=== PATIENT | female | born 1960 | race Caucasian/White ===

== ENCOUNTER 2016-11-29 19:06 | Emergency (ER) | payer MEDICAID ==
[2016-11-29 19:23] VITALS: BP 111/76; PULSE 88; RESP 18; TEMP 98.8; O2SAT 92
[2016-11-29] MEDS ORDERED: LETS SOLN TOPICAL 1 EA SYR TP ONE (19:44)
[2016-11-29] MEDS ORDERED: CEPHALEXIN 500 MG CAP PO ONE (20:12)
--- NOTE | 2016-11-29 20:15 | UCPHY ---
H & P Time Seen by Provider: 11/29/16 19:30 Patient Type: Established HPI/ROS: This patient has an infected wound to the right medial ankle. She explains that she struck her ankle against a sharp metal edge of the bed frame sustaining an abrasion or superficial laceration week ago. She cleaned at home was not seen by practitioner at that time. Over the past few days she has developed increasing redness and discomfort to the area. She also reports mild swelling. She reports a very small amount of discharge home. ROS: No fevers or chills. No other constitutional symptoms. No nausea or vomiting. No lightheadedness. 5 point ROS is otherwise negative. Past Medical/Surgical History: Hypothyroid. Otherwise healthy Immunocompetent Smoking Status: Current every day smoker Physical Exam: Physical Exam Vital signs are normal. General: No acute distress Eyes: Pupils equal and react to light. Extraocular motions are intact. Lungs: No respiratory distress. Cardiac: Brisk capillary refill is intact throughout. Pulses are 2+ and symmetric in the affected extremity. Skin: There is a 2 cm subacute laceration to the right medial ankle with fibrinous exudate and surrounding erythema 6 cm in diameter. There is no associated fluctuance or purulent drainage. There is no bony tenderness. No ankle effusion associated with this. Findings are localized only. Neuro: Alert and oriented x3 with no sensorimotor deficits. Constitutional: Initial Vital Signs Temperature (C) 37.1 C 11/29/16 19:20 Heart Rate 88 11/29/16 19:20 Respiratory Rate 18 11/29/16 19:20 Blood Pressure 111/76 11/29/16 19:20 O2 Sat (%) 92 11/29/16 19:20 O2 Delivery Mode Room Air Allergies/Adverse Reactions: Penicillins Allergy (Severe, Verified 10/05/16 17:23) Anaphylaxis erythromycin base [Erythromycin Base] Allergy (Verified 10/05/16 17:23) Hives Tetracyclines Allergy (Verified 10/05/16 17:23) Hives FLU SHOT Allergy (Uncoded 10/05/16 17:23) Other-Enter Comments Home Medications: Medication Instructions Recorded Levothyroxine [Synthroid 125 mcg 03/11/12 (*)] valACYclovir [Valtrex (*)] 04/30/14 oxyCODONE/APAP 5/325 [Percocet 05/01/14 5/325 (*)] Cymbalta 10/05/16 IBUPROFEN 10/05/16 Neurontin 10/05/16 Cephalexin [Keflex (*)] 500 mg PO TID #21 cap 11/29/16 MDM/Departure - MDM Medications Given: Discontinued Medications Cephalexin HCl (Keflex) 500 mg PO EDNOW ONE PRN Reason: Protocol Stop: 11/29/16 20:13 Last Admin: 11/29/16 20:44 Dose: 500 mg Tetracaine/Epinephrine/Lidocaine (Lets Soln Topical) 1 ea TP EDNOW ONE Stop: 11/29/16 19:45 Last Admin: 11/29/16 19:55 Dose: 1 ea ED Course/Re-evaluation: I obtained wound culture Let solution was applied for anesthesia the wound was scrubbed by our nurse a dressing was placed. I counseled the patient regarding wound infection. Clinically there is no evidence of abscess, septic arthritis or other concerning findings. She has no constitutional symptoms. While she has a penicillin allergy she has tolerated cephalosporins in the past by her history - Depart Disposition: Home, Routine, Self-Care Clinical Impression: Wound infection Cellulitis Qualifiers: Site of cellulitis: extremity Site of cellulitis of extremity: lower extremity Laterality: right Qualified Code(s): L03.115 - Cellulitis of right lower limb Condition: Good Instructions: Cellulitis (ED) Additional Instructions: Diagnosis: Wound infection of ankle wound 2. Cellulitis Plan: Apply warm packs to 3 times a day Elevate the leg when possible Keflex antibiotic Ibuprofen Tylenol for pain Clean the wound with warm soapy water daily and apply bandage when up and about. Let air get to the wound for at least part of the day Return if you have any significant worsening despite the treatment plan. Prescriptions: Cephalexin [Keflex (*)] 500 mg PO TID #21 cap Referrals: Lexie Wu MD [Primary Care Provider] - As per Instructions - PQRS PQRS Measurement: NA
== END 2016-11-29 20:47 | disposition home or self-care (01) ==
LOC: CED 19:06
DX: L03.115 Cellulitis of right lower limb (principal); S91.011D Laceration without foreign body, right ankle, subsequent encounter; W22.03XD Walked into furniture, subsequent encounter; W45.8XXD Other foreign body or object entering through skin, subsequent encounter; F17.200 Nicotine dependence, unspecified, uncomplicated
CPT/HCPCS: 99214-PO; G0463-PO

== ENCOUNTER 2017-08-22 17:17 | Emergency (ER) | payer MEDICAID ==
[2017-08-22 17:26] VITALS: TEMP 97.9; O2SAT 96
--- NOTE | 2017-08-22 17:34 | EDPHY ---
H & P Stated Complaint: Sharp R sided abd/flank pain assoc w/nausea/diarrhea HPI/ROS: HPI CHIEF COMPLAINT: Abdominal pain, right flank pain HISTORY OF PRESENT ILLNESS: This patient very pleasant 56-year-old female she has significant past medical history for arthritis, fibromyalgia, bipolar disorder, presents emergency room with 3 days of diarrhea and nausea. No fever. Additionally today she developed right-sided flank pain she describes as sharp stabbing it radiates into her right abdomen. She distally also reports urinary frequency. Denies back pain. Denies chest pain or shortness of breath. Main complaint nausea right flank pain. Past Medical History: Fibromyalgia, bipolar disorder, arthritis. Past Surgical History: . Social History: Daily smoker. Denies illicit drugs or alcohol. Family History: No recent surgery. ROS REVIEW OF SYSTEMS: A comprehensive 10 point review of systems is otherwise negative aside from elements mentioned in the history of present illness. Exam Constitutional appears well nontoxic, triage nursing summary reviewed, vital signs reviewed, awake/alert. Eyes normal conjunctivae and sclera, EOMI, PERRLA. HENT normal inspection, atraumatic, moist mucus membranes, no epistaxis, neck supple/ no meningismus, no raccoon eyes. Respiratory clear to auscultation bilaterally, normal breath sounds, no respiratory distress, no wheezing. Cardiovascular rate normal, regular rhythm, no murmur, no edema, distal pulses normal. Gastrointestinal mild right lower quadrant pain, soft, non-tender, no rebound, no guarding, normal bowel sounds, no distension, no pulsatile mass. Genitourinary mild right CVA tenderness, Musculoskeletal no midline vertebral tenderness, full range of motion, no calf swelling, no tenderness of extremities, no meningismus, good pulses, neurovascularly intact. Skin pink, warm, & dry, no rash, skin atraumatic. Neurologic awake, alert and oriented x 3, AAOx3, moves all 4 extremities equally, motor intact, sensory intact, CN II-XII intact, normal cerebellar, normal vision, normal speech. Psychiatric normal mood/affect. Heme/Lymph/Immune no lymphadenopathy. Differential diagnosis includes but is not limited to and in no particular order : Bowel obstruction, appendicitis, gallbladder disease, diverticulitis, colitis , enteritis, perforated viscus, gastritis, GERD, esophagitis, urinary tract infection, pyelonephritis, kidney stones Medical Decision Making: Plan for this patient IV establishment IV fluid bolus , 1 mg IV Ativan for anxiety, check UA, check blood work including CBC, LFTs, lipase, proceed with CT scan abdomen pelvis with IV contrast for right lower quadrant pain. And re-evaluate. Re-evaluation: CT scan abdomen pelvis with IV contrast negative for acute inflammatory process. This patient has a normal appendix. No evidence of a ureteral stones. Patient's blood work has been reviewed is unremarkable. Normal white count normal electrolytes normal liver enzymes normal UA. Nothing to explain right lower quadrant pain and right flank pain. This may be musculoskeletal in nature. I will place her on ibuprofen Flexeril for home. Return precautions given. She understands return emergency room if she develops worsening abdominal pain fever or vomiting. Flexeril and ibuprofen provided as prescriptions. Return precautions given. Source: Patient - Personal History Current Tetanus Diphtheria and Acellular Pertussis (TDAP): Yes Tetanus Vaccine Date: 2008 - Medical/Surgical History Hx Asthma: Yes Hx Chronic Respiratory Disease: No Hx Diabetes: No Hx Cardiac Disease: No Hx Renal Disease: No Hx Cirrhosis: No Hx Alcoholism: No Hx HIV/AIDS: No Hx Splenectomy or Spleen Trauma: No Other PMH: hypothyroid, exercise induced asthma. fibromyalgia - Social History Smoking Status: Current every day smoker Constitutional: Initial Vital Signs Temperature (C) 36.6 C 08/22/17 17:24 Heart Rate 88 08/22/17 17:24 Respiratory Rate 20 08/22/17 17:24 Blood Pressure 168/96 H 08/22/17 17:24 O2 Sat (%) 96 08/22/17 17:24 O2 Delivery Mode Room Air Allergies/Adverse Reactions: Penicillins Allergy (Severe, Verified 10/05/16 17:23) Anaphylaxis erythromycin base [Erythromycin Base] Allergy (Verified 10/05/16 17:23) Hives Tetracyclines Allergy (Verified 10/05/16 17:23) Hives FLU SHOT Allergy (Uncoded 10/05/16 17:23) Other-Enter Comments Home Medications: Medication Instructions Recorded Levothyroxine [Synthroid 125 mcg 03/11/12 (*)] valACYclovir [Valtrex (*)] 04/30/14 oxyCODONE/APAP 5/325 [Percocet 05/01/14 5/325 (*)] Cymbalta 10/05/16 IBUPROFEN 10/05/16 Neurontin 10/05/16 Cyclobenzaprine [Flexeril 10 MG 10 mg PO TID PRN #15 tab 08/22/17 (*)] Ibuprofen [Motrin (*)] 800 mg PO Q6-8PRN #10 tab 08/22/17 busPIRone [Buspar (*)] 10 mg PO 08/22/17 Medical Decision Making - Data Points Laboratory Results: Laboratory Results 08/22/17 17:43 08/22/17 17:43 08/22/17 08/22/17 08/22/17 17:43 17:43 17:20 WBC 8.88 10^3/uL 10^3/uL (3.80-9.50) RBC 4.27 10^6/uL 10^6/uL (4.18-5.33) Hgb 14.2 g/dL g/dL (12.6-16.3) Hct 40.5 % % (38.0-47.0) MCV 94.8 fL fL (81.5-99.8) MCH 33.3 pg pg (27.9-34.1) MCHC 35.1 g/dL g/dL (32.4-36.7) RDW 12.6 % % (11.5-15.2) Plt Count 239 10^3/uL 10^3/uL (150-400) MPV 11.0 fL fL (8.7-11.7) Neut % (Auto) 71.4 % % (39.3-74.2) Lymph % (Auto) 20.6 % % (15.0-45.0) [place] % (Auto) 5.3 % % (4.5-13.0) Eos % (Auto) 1.8 % % (0.6-7.6) Baso % (Auto) 0.7 % % (0.3-1.7) Nucleat RBC Rel Count 0.0 % % (0.0-0.2) Absolute Neuts (auto) 6.34 10^3/uL 10^3/uL (1.70-6.50) Absolute Lymphs (auto) 1.83 10^3/uL 10^3/uL (1.00-3.00) Absolute Monos (auto) 0.47 10^3/uL 10^3/uL (0.30-0.80) Absolute Eos (auto) 0.16 10^3/uL 10^3/uL (0.03-0.40) Absolute Basos (auto) 0.06 10^3/uL 10^3/uL (0.02-0.10) Absolute Nucleated RBC 0.00 10^3/uL 10^3/uL (0-0.01) Immature Gran % 0.2 % % (0.0-1.1) Immature Gran # 0.02 10^3/uL 10^3/uL (0.00-0.10) Sodium 141 mEq/L mEq/L (134-144) Potassium 4.5 mEq/L mEq/L (3.5-5.2) Chloride 106 mEq/L mEq/L (97-110) Carbon Dioxide 24 mEq/l mEq/l (22-31) Anion Gap 11 mEq/L mEq/L (8-16) BUN 14 mg/dL mg/dL (7-23) Creatinine 0.8 mg/dL mg/dL (0.6-1.0) Estimated GFR > 60 Glucose 98 mg/dL mg/dL (70-100) Calcium 10.4 mg/dL mg/dL (8.5-10.4) Total Bilirubin 0.7 mg/dL mg/dL (0.1-1.4) Conjugated Bilirubin 0.2 mg/dL mg/dL (0.0-0.5) Unconjugated Bilirubin 0.5 mg/dL mg/dL (0.0-1.1) AST 33 IU/L IU/L (14-46) ALT 32 IU/L IU/L (9-52) Alkaline Phosphatase 80 IU/L IU/L (38-126) Total Protein 7.2 g/dL g/dL (6.3-8.2) Albumin 4.5 g/dL g/dL (3.5-5.0) Lipase 106 IU/L IU/L (23-300) Urine Color COLORLESS Urine Appearance CLEAR Urine pH 7.0 (5.0-7.5) Ur Specific [place] 1.003 (1.002-1.030) Urine Protein NEGATIVE (NEGATIVE) Urine Ketones NEGATIVE (NEGATIVE) Urine Blood NEGATIVE (NEGATIVE) Urine Nitrate NEGATIVE (NEGATIVE) Urine Bilirubin NEGATIVE (NEGATIVE) Urine Urobilinogen NEGATIVE EU EU (0.2-1.0) Ur Leukocyte Esterase NEGATIVE (NEGATIVE) Urine Glucose NEGATIVE (NEGATIVE) Medications Given: Discontinued Medications Sodium Chloride (Ns) 1,000 mls @ 0 mls/hr IV EDNOW ONE; Wide Open PRN Reason: Protocol Stop: 08/22/17 17:39 Last Admin: 08/22/17 17:46 Dose: 1,000 mls Lorazepam (Ativan Injection) 1 mg IVP EDNOW ONE Stop: 08/22/17 17:40 Last Admin: 08/22/17 17:46 Dose: 1 mg Departure - Departure Disposition: Home, Routine, Self-Care Clinical Impression: Abdominal pain Qualifiers: Abdominal location: generalized Qualified Code(s): R10.84 - Generalized abdominal pain Condition: Good Instructions: Acute Abdominal Pain (ED) Additional Instructions: 1. Hardy diet next 24-48 hours. No spicy fatty greasy foods. 2. Return emergency room if develops worsening abdominal pain fever vomiting. Referrals: NONE *PRIMARY CARE P,. [Primary Care Provider] - As per Instructions Prescriptions: Cyclobenzaprine [Flexeril 10 MG (*)] 10 mg PO TID PRN #15 tab PRN Reason: Spasms Ibuprofen [Motrin (*)] 800 mg PO Q6-8PRN #10 tab
[2017-08-22] MEDS ORDERED: NS 1,000 ML IV ONE (17:38)
[2017-08-22] MEDS ORDERED: LORazepam 2 MG/ML INJ IVP ONE (17:39)
[2017-08-22 17:50] LABS: COLOR COLORLESS; LEUKOCYTE ESTERASE,URINE NEGATIVE (NEGATIVE); NITRITE,URINE NEGATIVE (NEGATIVE)
[2017-08-22 18:12] LABS: % IMMATURE GRANULYOCYTES 0.2 % (0.0-1.1); ABSOLUTE IMMATURE GRANULOCYTES 0.02 10^3/uL (0.00-0.10); ADD DIFF? NO; ADD MORPH? NO; ADD SCAN? NO; ATYPICAL LYMPHOCYTE FLAG 0 (0-99); FRAGMENT RBC FLAG 0 (0-99); HEMATOCRIT 40.5 % (38.0-47.0); HEMOGLOBIN 14.2 g/dL (12.6-16.3); LEFT SHIFT FLG 0 (0-99); LIPEMIA HEMOLYSIS FLAG 90 (0-99); MEAN CELL HEMOGLOBIN 33.3 pg (27.9-34.1); MEAN CELL HEMOGLOBIN CONCENTR. 35.1 g/dL (32.4-36.7); MEAN CELL VOLUME 94.8 fL (81.5-99.8); PLATELET CLUMPS FLAG 0 (0-99); PLATELET COUNT 239 10^3/uL (150-400); RED BLOOD CELL COUNT 4.27 10^6/uL (4.18-5.33); RED CELL DISTRIBUTION WIDTH 12.6 % (11.5-15.2)
[2017-08-22 18:13] LABS: ALANINE AMINOTRANSFERASE 32 IU/L (9-52); ALBUMIN 4.5 g/dL (3.5-5.0); ALKALINE PHOSPHATASE 80 IU/L (38-126); ANION GAP 11 mEq/L (8-16); ASPARTATE AMINOTRANSFERASE 33 IU/L (14-46); BILIRUBIN,TOTAL 0.7 mg/dL (0.1-1.4); BILIRUBIN-CONJUGATED 0.2 mg/dL (0.0-0.5); BILIRUBIN-UNCONJUGATED 0.5 mg/dL (0.0-1.1); CALCIUM 10.4 mg/dL (8.5-10.4); CARBON DIOXIDE 24 mEq/l (22-31); CHLORIDE 106 mEq/L (97-110); CREATININE 0.8 mg/dL (0.6-1.0); GLOMERULAR FILTRATION RATE > 60; GLUCOSE 98 mg/dL (70-100); POTASSIUM 4.5 mEq/L (3.5-5.2); SODIUM 141 mEq/L (134-144); TOTAL PROTEIN 7.2 g/dL (6.3-8.2)
[2017-08-22] MEDS ORDERED: IOPAMIDOL (ISOVUE-300) 100 ML BTL ONE (18:33)
[2017-08-22 19:16] VITALS: BP 123/64; PULSE 78; RESP 16
== END 2017-08-22 20:19 | disposition home or self-care (01) ==
DX: R10.84 Generalized abdominal pain (principal); E86.9 Volume depletion, unspecified; F17.200 Nicotine dependence, unspecified, uncomplicated; J45.909 Unspecified asthma, uncomplicated
CPT/HCPCS: 96374; J2060; Q9967

== ENCOUNTER 2018-06-05 12:56 | Emergency (ER) | payer OTHER, MEDICAID ==
--- NOTE | 2018-06-05 13:33 | EDPHY ---
H & P Stated Complaint: fever 102 swollen glands face and ocampo for few days Time Seen by Provider: 06/05/18 13:05 HPI/ROS: Chief Complaint: Right facial droop, swollen glands, general malaise HPI: 57-year-old woman with a history of arthritis, fibromyalgia and TIA in the past is presenting complaining of numbness on the right side of her mouth and difficulty speaking. Patient states that she is also biting the inside of her lip because she cannot feel it. She says see woke up feeling this way. She has had general malaise for the last couple of days with swollen glands, she reports of fever to 102 at home. She did take some Tylenol today. She states she had similar symptoms 2 or 3 years ago and had negative testing done at that time. She is not currently on any anticoagulation. No falls. No nausea or vomiting. No other numbness or weakness. ROS: 10 point Review of Systems is negative except as noted in the HPI. PMH: Bipolar disorder, arthritis, fibromyalgia, TIA Social History: Positive smoking Family History: non-contributory Physical Exam: Gen: Awake, Alert, No Distress HEENT: Very mild right cheek swelling without any tenderness or masses noted. No erythema Nose: no rhinorrhea Eyes: PERRLA, EOMI Mouth: Moist mucosa, very mild right soft tissue tenderness just posterior to the angle of the jaw without any masses or lymphadenopathy. Neck: Supple, no JVD, no significant cervical lymphadenopathy Chest: nontender, lungs clear to auscultation Heart: S1, S2 normal, no murmur Abd: Soft, non-tender, no guarding Back: no CVA tenderness, no midline tenderness Ext: no edema, non-tender Skin: no rash Neuro: See NIH stroke score - Personal History Current Tetanus Diphtheria and Acellular Pertussis (TDAP): Yes Tetanus Vaccine Date: 2008 - Medical/Surgical History Hx Asthma: Yes Hx Chronic Respiratory Disease: No Hx Diabetes: No Hx Cardiac Disease: No Hx Renal Disease: No Hx Cirrhosis: No Hx Alcoholism: No Hx HIV/AIDS: No Hx Splenectomy or Spleen Trauma: No Other PMH: hypothyroid, exercise induced asthma. fibromyalgia. c section x 2. knee surgery. colon polypectomy - Social History Smoking Status: Current every day smoker Constitutional: Initial Vital Signs Temperature (C) 37.1 C 06/05/18 13:04 Heart Rate 85 06/05/18 13:04 Respiratory Rate 16 06/05/18 13:04 Blood Pressure 145/86 H 06/05/18 13:04 O2 Sat (%) 94 06/05/18 13:04 O2 Delivery Mode Room Air Allergies/Adverse Reactions: Penicillins Allergy (Severe, Verified 06/05/18 13:09) Anaphylaxis erythromycin base [Erythromycin Base] Allergy (Verified 06/05/18 13:09) Hives Tetracyclines Allergy (Verified 06/05/18 13:09) Hives FLU SHOT Allergy (Uncoded 06/05/18 13:09) Other-Enter Comments Home Medications: Medication Instructions Recorded Levothyroxine [Synthroid 125 mcg 03/11/12 (*)] valACYclovir [Valtrex (*)] 04/30/14 oxyCODONE/APAP 5/325 [Percocet 05/01/14 5/325 (*)] Cymbalta 90 10/05/16 IBUPROFEN 10/05/16 Anti Anxiety Med 06/05/18 Neurontin 100 MG (*) 800 TID 06/05/18 Medical Decision Making - Diagnostics Imaging: Discussed imaging studies w/ matte cutter Radiologist ED Course/Re-evaluation: 57-year-old woman presenting with patient will numbness and some mild dysarthria of speech. She has normal nasal labial fold but she definitely has a drooping right lower lip with a subjective sensation loss to the right side of her face to light touch. I do not appreciate any swelling or masses of the parotid or significant lymphadenopathy. Remainder of her exam is unremarkable. She does have an NIH score of 3. She woke with this of the time of onset is well over 14 hr since last normal. Blood sugar in 130s. Have obtaining a CT scan of the head. This could certainly be peripheral nerve process however given her history of TIA in an isolated neurologic finding which is both sensory and motor she will need further workup for stroke. She is requesting to be transferred to [facility]. Patient is refusing aspirin at this time. She did take ibuprofen this morning. She is complaining of a mild headache. [address] scan of the head is negative per Dr. Timmons. I have discussed with Dr. Sutton, hospitalist at [facility]. He will accept the patient but once the patient transfer to the E [facility]. I have discussed with Dr. Laws, [facility]. He will accept the patient transfer. I have completed the EMTALA. - Data Points Medications Given: Discontinued Medications Acetaminophen (Tylenol) 1,000 mg PO EDNOW ONE Stop: 06/05/18 14:13 Last Admin: 06/05/18 14:26 Dose: 1,000 mg Point of Care Test Results: CBC CBC Collection Date 06/05/18 CBC Collection Time 13:30 WBC 5.3 RBC 4.12 HGB 12.1 HCT 37.3 PLT 227 Neut # 3.6 Neut 67.4 LYMPH # 1.2 LYMPH 23.3 Other WBC # 0.5 Other WBC 9.3 MCV 90.5 Chemistry 06/05/18 06/05/18 13:36 13:25 POC Sodium 140 mEq/L mEq/L (135-145) POC Potassium 3.4 mEq/L mEq/L (3.3-5.0) POC Chloride 110.0 mEq/L mEq/L (97-110) POC Total CO2 25 mEq/L mEq/L (22-31) POC BUN 13 mg/dL mg/dL (7-23) POC Creatinine 1.1 mg/dL H mg/dL (0.6-1.0) POC Glucose 109 mg/dL H mg/dL 132 mg/dL H mg/dL (70-100) (70-100) POC Calcium 9.8 mg/dL mg/dL (8.5-10.4) Departure - Departure Disposition: [facility] Clinical Impression: CVA (cerebral vascular accident) Condition: Fair Referrals: Lexie Wu MD [Primary Care Provider] - As per Instructions NIH Stroke Scale Date of Exam: 06/05/18 Time of Exam: 13:20 Level of Consciousness: Alert LOC Questions: Answers Both LOC Commands: Performs Both Correctly Best Gaze: Normal Visual: No Visual Loss Facial Palsy: Minor Paralysis Motor Arm-Left: No Drift Motor Arm-Right: No Drift Motor Leg-Left: No Drift Motor Leg-Right: No Drift Limb Ataxis: Absent Sensory: Mild/Mod Sensory Loss Best Language: No Aphasia Dysarthria: Mild/Mod Dysarthria Extinction and Inattention (Neglect): No Abnormality NIH Scale Score: 3
[2018-06-05] MEDS ORDERED: ACETAMINOPHEN 500 MG TAB PO ONE (14:12)
[2018-06-05 15:07] VITALS: BP 128/85
== END 2018-06-05 15:00 | disposition short-term general hospital (02) ==
LOC: CED 12:56
DX: I63.9 Cerebral infarction, unspecified (principal); R59.9 Enlarged lymph nodes, unspecified; F17.200 Nicotine dependence, unspecified, uncomplicated
CPT/HCPCS: 70450-PO; 80048-PO